=== PATIENT | female | born 1990 | race Caucasian/White ===

== ENCOUNTER 2022-02-02 06:42 | Inpatient (IN) ==
[2022-02-02] MEDS ORDERED: LACTATED RINGER'S 1,000 ML IV PRN (07:20)
[2022-02-02] MEDS ORDERED: OXYTOCIN 30 UNITS/500 ML BAG IV PRN ×2 (07:20→10:03)
[2022-02-02] MEDS ORDERED: LIDOCAINE 1% LOCAL 20 ML VIAL INFIL PRN (07:20)
[2022-02-02 07:56] LABS: Hemoglobin 14.5 g/dl (12.0-16.0); Mean Corpuscular Hemoglobin 30.6 pg (25.0-34.0); Mean Corpuscular Hgb Conc 35.4 g/dL (32.0-36.0); Mean Corpuscular Volume 86.5 fL (80.0-100.0); Mean Platelet Volume 11.3 fL (9.4-12.3); Platelet Count 258 K/uL (130-400); RDW Standard Deviation 40.9 fL (36.4-46.3); Red Blood Count 4.74 M/uL (3.93-5.22)
--- NOTE | 2022-02-02 07:56 | History & Physical Report ---
Date of Service February 02, 2022 Assessment & Plan (1) Active labor: Plan: 31 yo G1 at 39 5/7 wga presents in labor VSS Fetus cat 1 Labor - manage expectantly GBS neg epidural prn, pt desires to go unmedicated Admission and Anticipated Discharge Date Admission Date: February 02, 2022 History of Present Illness Chief Complaint: Contractions Primary Care Provider: Jorge Shafer, 31 yo G1 at 39 5/7 wga presents with c/o ctx increasing in frequency and intensity. +FM; denies LOF, VB PNI: resolved maternal simple cyst Past POUNCER Hx: G1 denies hx STIs 07/2020 neg cyto Allergies Allergy/AdvReac Type Severity Reaction Status Date / Time No Known Allergies Allergy Verified 01/28/22 12:17 Home Medications Medication Instructions Recorded Confirmed Type prenat.vits,denice,nxk-kakx-mefiw 1 tab PO DAILY 06/19/21 02/02/22 History Patient History Medical History (Updated 02/02/22 @ 07:55 by Rosa Craig MD) History of chicken pox Varicella vaccination Surgical History S/P wisdom tooth extraction Family History (Updated 06/19/21 @ 10:58 by Zelda Collier) Grandfather (Paternal) Prostate cancer Grandmother (Paternal) Diabetes Kidney failure Grandmother (Maternal) Myocardial infarction Grandfather (Maternal) Heart disease COPD (chronic obstructive pulmonary disease) Denies family history of Ovarian cancer Breast cancer Colorectal cancer Social History (Updated 06/19/21 @ 10:59 by Zelda Collier) Smoking Status: Never smoker marital status: marital status details: Arleen Meghana (30) [phone] Current Living Situation: Spouse Current Living Situation Comment: lives with spouse, no pets current occupational status: employed 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 Physical Exam Genitourinary: OB Exam Abdomen: + vertex and + estimated weight (7-8) Manual OB Exam: + cervical dilation 4 cm, + cervical effacement 90% and + station 0 OB Exam Monitor Tracing: + external FHT monitor used, + external uterine monitor used (q3-4) and + category I (135/mod/+accel/-decel) Results & Data ([facility]) Laboratory Results OB Labs: Blood Type A Positive 06/26/21 Antibody Screen NEGATIVE 06/26/21 Hemoglobin 12.7 g/dl (12.0-16.0) 11/06/21 Hematocrit 37.9 % (34.1-44.9) 11/06/21 Mean Corpuscular Volume 88.7 fL (80-100) 06/26/21 Platelet Count 346 K/uL (130-400) 06/26/21 Rubella IgG Antibody Immune (Immune) 06/26/21 Rapid Plasma Reagin Nonreactive (Nonreactive) 06/26/21 Hepatitis B Surface Antigen. NON-REACTIVE (NON-REACTIVE) 06/26/21 Hepatitis C Antibody (EIA) NON-REACTIVE (NON-REACTIVE) 06/26/21 HIV (1&2) Ab and P24 Ag, 4th Gener Neg (Neg) 06/26/21 Glucose 1 Hour 50 gm Load 104 mg/dl (70-130) 11/06/21 OB Optional Labs: Chlamydia trachomatis RNA NOT DETECTED (NOT DETECTED) 06/26/21 Neisseria gonorrhoeae RNA NOT DETECTED (NOT DETECTED) 06/26/21 Labs Reviewed: Declines cf/sma--mln Declines cfdna--mln declines msafp--smp gbs neg--akh Diagnostic Findings post plac Coding Level of Care Code None Diagnoses Active labor
[2022-02-02] MEDS ORDERED: IBUPROFEN 600 MG TAB PO ONE (09:34)
--- NOTE | 2022-02-02 09:39 | Delivery Summary ---
Vaginal Delivery Summary Date of Service February 02, 2022 Vaginal Delivery Summary and 2nd Degree LAC PREOPERATIVE DIAGNOSIS: 1. Single intrauterine at 39 5/7 wga 2. Labor POSTOPERATIVE DIAGNOSIS: 1. Single intrauterine at 39 5/7 wga 2. Labor 3. Delivered PROCEDURE: 1. Normal spontaneous vaginal delivery. SURGEON: Rosa Craig MD ANESTHESIA: Local ESTIMATED BLOOD LOSS: 300 mL FLUIDS: Continuous LR. URINE OUTPUT: None. COMPLICATIONS: None. CONDITION: Stable. INDICATIONS: 31 yo G1 at 39 5/7 wga presented this morning with contractions increasing in frequency and intensity. She was 4cm on arrival and had SROM. Forebag was palpated and ruptured for meconium stained fluid. She quickly progressed spontaneously to complete and desired to push. FINDINGS: A viable male , weight pending with Apgars of 7 and 8 at 1 and 5 minutes respectively. SPECIMEN: Cord blood, placenta OPERATIVE REPORT: The patient progressed to 10 cm, 100% effaced and +2 station, pushed over intact perineum with anesthesia to deliver a viable male infant, weight and Apgars as above. Head of delivered in CLINT position. No nuchal cord was present. Body and shoulders were delivered without difficulty. was delivered to maternal abdomen and nursing staff. Delayed cord clamping was performed for 60 seconds as was initially vigorous. Cord was clamped and cut. Infant was noted to have some grunting and taken over to nursery staff at this time. Cord blood was obtained. Placenta delivered spontaneously intact with 3-vessel cord. IV oxytocin and fundal massage were given for excellent hemostasis. Vagina, cervix, perineum, and placenta were inspected. A left vaginal laceration leading into a second degree was noted and repaired with 3-0 Vicryl after 1% lidocaine was administered. There was excellent hemostasis. Sponge and needle counts correct x2. No sponges were left behind. Mother and stable in immediate period. [facility] Vaginal Delivery Charge Vaginal Delivery Codes: 15043 global code for the antepartum, delivery, and post- Delivery Type Details: and 2nd Degree LAC
[2022-02-02] MEDS ORDERED: DIPHTHERIA/TETANUS/PERTUSSIS 0.5 ML SYR/VIAL IM ONE (10:03)
[2022-02-02] MEDS ORDERED: bisacodyL 10 MG SUPP PR PRN (10:03)
[2022-02-02] MEDS ORDERED: HYDROCORTISONE ACETATE 25 MG SUPP PR PRN (10:03)
[2022-02-02] MEDS ORDERED: ACETAMINOPHEN 325 MG TAB PO PRN (10:03)
[2022-02-02] MEDS ORDERED: BENZOCAINE 20% AER SPR 82.5 GM CAN EXT PRN (10:03)
[2022-02-02] MEDS: IBUPROFEN 600 MG TAB PO PRN ×2 (14:55→19:16)
[2022-02-02] MEDS: DOCUSATE SODIUM 100 MG CAP PO SCH (21:04)
[2022-02-03] MEDS: IBUPROFEN 600 MG TAB PO PRN ×6 (00:31→20:13)
--- NOTE | 2022-02-03 06:13 | Obstetrical Progress Note ---
Date of Service <Emelina Castellanos - Last Filed: 02/03/22 06:50> February 03, 2022 Assessment & Plan <Emelina CastellanosDO - Last Filed: 02/03/22 06:50> (1) Status post vaginal delivery: continue OOB, ambulation, diet as tolerated <Rosa Craig MD - Last Filed: 02/03/22 06:58> (1) Status post vaginal delivery: Subjective <Emelina CastellanosDO - Last Filed: 02/03/22 06:50> Alyssa is a 31 y/o female who is now PPD # 1 following spontaneous vaginal delivery at 39 5/7 weeks. Reports feeling well overall this morning. Mild abdominal cramping pain well managed with ibuprofen. Voiding. Tolerating meals overnight and able to ambulate some. Some persistent lochia with some improvement this morning. Plans to once baby is able, has been pumping. Review of Systems Denies fever, chills, sweats Denies shortness of breath, difficulty breathing, chest pain, palpitations, chest pressure. Denies breast pain. Denies dysuria. Denies headache or changes in vision. Physical Exam <Emelina Castellanos - Last Filed: 02/03/22 06:50> General: Alert, oriented. No acute distress. Cardiac: Regular rate and rhythm, no murmurs/rubs/gallops. Respiratory: Clear to auscultation bilaterally a/p, no wheezes/rales/rhonchi. No increased work of breathing. Symmetrical chest rise. No respiratory distress. Abdomen: Soft, nontender, nondistended. Uterus: Uterine fundus firm, palpable 2 cm below umbilicus. Lower Extremities: No lower extremity edema or swelling. No deep calf pain. Miguel's negative bilaterally. Results & Data ([facility]) <Emelina CastellanosDO - Last Filed: 02/03/22 06:50> Vital Signs (Past 12 Hours) Vital Signs Temp Pulse Pulse Resp BP Pulse Ox O2 Del Method 02/03/22 04:30 36.4 C L 74 16 122/78 99 Room Air 02/03/22 00:30 36.8 C 73 16 116/78 99 Room Air 02/02/22 19:15 37.1 C 85 18 126/86 100 Room Air <Rosa Craig MD - Last Filed: 02/03/22 06:58> Co-Signing Physician Notes Resident Physician Supervision Note: I interviewed and examined the patient. Discussed with Dr. Castellanos and agree with findings and plan as documented in the note. Any exceptions or clarifications are listed here: PP1 s/p , doing well. VSS, exam benign and wnl. Baby in nursery due to meconium, continue routine pp care Documented By: Rosa Craig MD Resident Activity Tracking <Emelina Castellanos, - Last Filed: 02/03/22 06:50> Resident Involvement: Resident Care Provided Care Provided: OB Delivery (Post )
[2022-02-03] MEDS: DOCUSATE SODIUM 100 MG CAP PO SCH ×2 (08:11→20:13)
[2022-02-03] MEDS: PRENATAL VITAMIN 1 TAB PO SCH (08:11)
[2022-02-03] MEDS ORDERED: bisacodyL 5 MG TABEC PO SCH (20:00)
[2022-02-04] MEDS: IBUPROFEN 600 MG TAB PO PRN ×3 (01:31→14:43)
--- NOTE | 2022-02-04 05:33 | Obstetrical Progress Note ---
Date of Service <Emelinakyle CastellanosDO - Last Filed: 02/04/22 06:50> February 04, 2022 Assessment & Plan <Emelina CastellanosDO - Last Filed: 02/04/22 06:50> (1) Status post vaginal delivery: continue OOB, ambulation, diet as tolerated <Leslie Olivier MD - Last Filed: 02/04/22 06:35> (1) Status post vaginal delivery: Subjective <Emelinakyle CastellanosDO - Last Filed: 02/04/22 06:50> Alyssa is a 31 y/o female who is now PPD #2 following spontaneous vaginal delivery at 39 5/7 weeks. Reports feeling well overall this morning. Mild abdominal cramping pain well managed with ibuprofen. Voiding. Tolerating meals overnight and able to ambulate some. Some persistent lochia with some improvement this morning. Plans to once baby is able, has been pumping. Review of Systems Denies fever, chills, sweats Denies shortness of breath, difficulty breathing, chest pain, palpitations, chest pressure. Denies breast pain. Denies dysuria. Denies headache or changes in vision. Physical Exam <Emelinakyle CastellanosDO - Last Filed: 02/04/22 06:50> General: Alert, oriented. No acute distress. Cardiac: Regular rate and rhythm, no murmurs/rubs/gallops. Respiratory: Clear to auscultation bilaterally a/p, no wheezes/rales/rhonchi. No increased work of breathing. Symmetrical chest rise. No respiratory distress. Abdomen: Soft, nontender, nondistended. Uterus: Uterine fundus firm, palpable 2 cm below umbilicus. Lower Extremities: No lower extremity edema or swelling. No deep calf pain. Miguel's negative bilaterally. Results & Data ([facility]) <Emelina SDina Castellanos DO - Last Filed: 02/04/22 06:50> Vital Signs (Past 12 Hours) Vital Signs Temp Pulse Resp BP 02/04/22 01:25 36.8 C 72 18 115/77 02/03/22 21:15 36.6 C 83 18 115/78 <Leslie Olivier MD - Last Filed: 02/04/22 06:35> Co-Signing Physician Notes Resident Physician Supervision Note: I interviewed and examined the patient. Discussed with Dr. Castellanos and agree with findings and plan as documented in the note. Any exceptions or clarifications are listed here: [ ] Documented By: Leslie Olivier MD, FACOG Resident Activity Tracking <Emelina Castellanos, DO - Last Filed: 02/04/22 06:50> Resident Involvement: Resident Care Provided Care Provided: OB Delivery (Post )
[2022-02-04] MEDS: DOCUSATE SODIUM 100 MG CAP PO SCH (08:20)
[2022-02-04] MEDS: PRENATAL VITAMIN 1 TAB PO SCH (08:20)
== END 2022-02-04 18:35 | disposition home or self-care (01) | DRG 807 ==
LOC: OPB 06:42 → 4S1 06:48 → 4E2 12:15